=== PATIENT | male | born 1935 | race Caucasian/White ===

== ENCOUNTER 2017-07-19 05:27 | Inpatient (IN) | payer OTHER ==
[~2017-07-19] VITALS: Ht 170.2 cm; Wt 70.8 kg
[~2017-07-19 05:27] MED LIST: ASPIR-LOW81 MG PO; Aspirin E.C. PO; LIPITOR40 MG PO; LISINOPRIL20 MG PO; LISINOPRIL40 MG PO; LOPRESSOR25 MG PO; LOPRESSOR50 MG PO; NORVASC2.5 MG PO; PHENOBARBITAL PO; PHENOBARBITAL15 MG PO; PHENOBARBITAL30 MG PO; TAMSULOSIN HCL0.4 MG PO; TYLENOL EXTRA500 MG PO
[2017-07-19 07:30] LABS: HEMATOCRIT 33.7 % (38.0-50.0); HEMOGLOBIN 10.9 G/DL (12.5-16.6); MCH 30.7 PG (29.0-34.0); MCHC 32.3 G/DL (30.0-36.0); MCV 94.9 FL (86-99); PLATELET COUNT 172 K/uL (156-360); RBC DIS.WIDTH-CV 13.5 % (11.8-14.6); RBC DIS.WIDTH-SD 47.5 % (39-53); RED BLOOD COUNT 3.55 M/uL (4.00-5.50)
[2017-07-19 07:49] LABS: ALBUMIN 3.9 G/DL (3.2-4.8); CHLORIDE 109 MEQ/L (99-109); SODIUM 140 MEQ/L (136-147); TOTAL BILIRUBIN 0.5 MG/DL (0.0-1.0)
[2017-07-19 07:55] LABS: ALKALINE PHOSPHATASE 126 IU/L (3-129); ALT (GPT) 11 IU/L (3-49); AST (GOT) 13 IU/L (2-34); CREATININE 1.1 MG/DL (0.6-1.3); GFR ESTIMATE (CALCULATED) > 59 mL/min/ (58.99-99999); GLUCOSE 109 mg/dL (70-99); TOTAL PROTEIN 6.8 G/DL (6.4-8.3); UREA NITROGEN (BUN) 45 mg/dL (9-23)
[2017-07-19 07:59] LABS: TROP-I INTERPRETATION NEGATIVE; TROPONIN-I < 0.01 ng/mL (0.0-0.30)
[2017-07-19 08:53] LABS: APPEARANCE CLEAR ((CLEAR)); BILIRUBIN NEGATIVE; BLOOD NEGATIVE; COLOR STRAW ((YELLOW)); GLUCOSE (STRIP) NEGATIVE; KETONES NEGATIVE; LEUKOCYTES NEGATIVE; NITRITE NEGATIVE; PROTEIN (STRIP) NEGATIVE; UROBILINOGEN 0.2 MG/DL (0.2-1.0)
[2017-07-19 17:40] VITALS: BP 183/76
[2017-07-19 19:15] VITALS: BP 145/73
[2017-07-19 23:39] VITALS: BP 150/68
[2017-07-20 02:53] VITALS: BP 100/57
[2017-07-20 08:11] VITALS: BP 100/73
[2017-07-20 10:03] VITALS: BP 113/58
[2017-07-20 11:15] VITALS: BP 122/55
[2017-07-20 19:20] VITALS: BP 141/77
[2017-07-21 03:26] VITALS: BP 144/64
[2017-07-21 07:44] VITALS: BP 160/70
[2017-07-21 11:14] VITALS: BP 148/66
[2017-07-21 11:39] LABS: HEMATOCRIT 32.3 % (38.0-50.0); HEMOGLOBIN 10.6 G/DL (12.5-16.6); MCH 30.8 PG (29.0-34.0); MCHC 32.8 G/DL (30.0-36.0); MCV 93.9 FL (86-99); PLATELET COUNT 188 K/uL (156-360); RBC DIS.WIDTH-CV 13.4 % (11.8-14.6); RBC DIS.WIDTH-SD 46.2 % (39-53); RED BLOOD COUNT 3.44 M/uL (4.00-5.50); WHITE BLOOD COUNT 10.9 K/uL (4.1-10.2)
[2017-07-21 12:01] LABS: CHLORIDE 106 MEQ/L (99-109); GFR ESTIMATE (CALCULATED) > 59 mL/min/ (58.99-99999); GLUCOSE 105 mg/dL (70-99); POTASSIUM 4.5 MEQ/L (3.7-5.4); SODIUM 140 MEQ/L (136-147); UREA NITROGEN (BUN) 27 mg/dL (9-23)
[2017-07-21 16:08] VITALS: BP 175/75
[2017-07-21 19:30] LABS: Folate, RBC 31.7 % (())
[2017-07-21 19:34] VITALS: BP 110/57
[2017-07-22] VITALS (8 sets, daily range): BP systolic 76–147; BP diastolic 45–78
[2017-07-22 04:17] LABS: APPEARANCE CLEAR ((CLEAR)); BILIRUBIN NEGATIVE; BLOOD MODERATE; COLOR YELLOW ((YELLOW)); GLUCOSE (STRIP) NEGATIVE; KETONES NEGATIVE; LEUKOCYTES NEGATIVE; NITRITE NEGATIVE; PROTEIN (STRIP) 100; UROBILINOGEN 0.2 MG/DL (0.2-1.0)
[2017-07-22 04:35] LABS: BACTERIA RARE /HPF; EPITHELIAL CELLS NONE SEEN /HPF; MUCUS TRACE /LPF; RED BLOOD CELLS 0-5 /HPF (0-5); UCUL ADDED? NO; WHITE BLOOD CELLS 0-5 /HPF (0-5)
[2017-07-22 05:27] LABS: BASOPHIL (%) 0.5 % (0-1); EOSINOPHIL (%) 0.1 % (0-5); HEMATOCRIT 28.3 % (38.0-50.0); HEMOGLOBIN 9.5 G/DL (12.5-16.6); IMMATURE GRANULOCYTE (%) 1.3 % (0.0-0.7); LYMPHOCYTE (%) 3.5 % (15-42); LYMPHOCYTE COUNT 0.3 K/uL (1.0-2.8); MCH 31.1 PG (29.0-34.0); MCHC 33.6 G/DL (30.0-36.0); MCV 92.8 FL (86-99); MONOCYTE (%) 9.1 % (3-12); MONOCYTE COUNT 0.8 K/uL (0-0.8); NEUTROPHIL (%) 85.5 % (45-76); NEUTROPHIL COUNT 7.3 K/uL (1.8-6.4); NRBC (%) 0.2 /100 WBC (0-0); PLATELET COUNT 153 K/uL (156-360); RBC DIS.WIDTH-CV 13.6 % (11.8-14.6); RBC DIS.WIDTH-SD 46.6 % (39-53); RED BLOOD COUNT 3.05 M/uL (4.00-5.50); WHITE BLOOD COUNT 8.5 K/uL (4.1-10.2)
[2017-07-22 05:46] LABS: ALBUMIN 3.3 G/DL (3.2-4.8); ALKALINE PHOSPHATASE 104 IU/L (3-129); ALT (GPT) 13 IU/L (3-49); CHLORIDE 105 MEQ/L (99-109); CREATININE 0.9 MG/DL (0.6-1.3); GFR ESTIMATE (CALCULATED) > 59 mL/min/ (58.99-99999); GLUCOSE 142 mg/dL (70-99); POTASSIUM 3.9 MEQ/L (3.7-5.4); SODIUM 136 MEQ/L (136-147); UREA NITROGEN (BUN) 28 mg/dL (9-23)
[2017-07-22 05:47] LABS: AST (GOT) 39 IU/L (2-34); TOTAL BILIRUBIN 0.7 MG/DL (0.0-1.0); TOTAL PROTEIN 5.6 G/DL (6.4-8.3)
[2017-07-22 06:18] LABS: INTER. NORMALIZED RATIO 1.1
[2017-07-22 09:36] LABS: ERTH.SED.RATE 8 MM/HR (0-20)
[2017-07-23 03:45] VITALS: BP 98/52
[2017-07-23 05:49] VITALS: BP 102/58
[2017-07-23 08:58] VITALS: BP 143/83
[2017-07-23 11:48] VITALS: BP 154/79
[2017-07-23 19:40] VITALS: BP 137/64
[2017-07-24 04:46] VITALS: BP 141/66
[2017-07-24 09:30] VITALS: BP 162/71
[2017-07-24 11:45] VITALS: BP 111/58
[2017-07-24 15:57] VITALS: BP 172/75
[2017-07-24 20:46] VITALS: BP 112/65
[2017-07-24 23:03] VITALS: BP 123/69
[2017-07-25 04:25] VITALS: BP 162/83
[2017-07-25 08:12] VITALS: BP 137/95
[2017-07-25 11:59] VITALS: BP 171/77
[2017-07-25 16:03] VITALS: BP 154/72
[2017-07-25 19:00] VITALS: BP 148/66
[2017-07-25 23:28] VITALS: BP 158/70
[2017-07-26 08:15] VITALS: BP 162/72
[2017-07-26 10:21] LABS: HEMATOCRIT 26.9 % (38.0-50.0); HEMOGLOBIN 8.7 G/DL (12.5-16.6); MCH 30.4 PG (29.0-34.0); MCHC 32.3 G/DL (30.0-36.0); MCV 94.1 FL (86-99); PLATELET COUNT 166 K/uL (156-360); RBC DIS.WIDTH-CV 14.3 % (11.8-14.6); RBC DIS.WIDTH-SD 48.6 % (39-53); RED BLOOD COUNT 2.86 M/uL (4.00-5.50); WHITE BLOOD COUNT 6.3 K/uL (4.1-10.2)
[2017-07-26 10:37] LABS: CHLORIDE 106 MEQ/L (99-109); POTASSIUM 3.9 MEQ/L (3.7-5.4); SODIUM 139 MEQ/L (136-147)
[2017-07-26 10:44] LABS: CREATININE 0.8 MG/DL (0.6-1.3); GFR ESTIMATE (CALCULATED) > 59 mL/min/ (58.99-99999); GLUCOSE 149 mg/dL (70-99); UREA NITROGEN (BUN) 17 mg/dL (9-23)
[2017-07-26 10:57] VITALS: BP 138/65
[2017-07-26 15:16] VITALS: BP 153/67
[2017-07-26 19:39] VITALS: BP 160/70
[2017-07-27] VITALS (8 sets, daily range): BP systolic 110–179; BP diastolic 56–82
[2017-07-27 11:11] LABS: BASE EXCESS 4.2 mEq/L (-3 to +3); BICARBONATE 28.4 mEq/L (22-26); COMMENTS - BLOOD GASES A+C+; DEVICE NC; METHEMOGLOBIN 1.7 % (0-1.5); O2 FLOW 3 L/MIN; PCO2 40 mm Hg (35-45); PO2 70 mm Hg (80-100); SITE RR; TOTAL RESP RATE 21 resp/min; pH 7.46 (7.35-7.45)
[2017-07-28 03:44] VITALS: BP 187/77
[2017-07-28 03:56] VITALS: BP 152/72
[2017-07-28 10:27] VITALS: BP 134/60
[2017-07-28 11:50] VITALS: BP 128/60
[2017-07-28 15:54] VITALS: BP 148/66
[2017-07-29 00:41] VITALS: BP 131/94
[2017-07-29 04:49] VITALS: BP 121/84
[2017-07-29 05:29] LABS: HEMATOCRIT 26.6 % (38.0-50.0); HEMOGLOBIN 8.8 G/DL (12.5-16.6); MCHC 33.1 G/DL (30.0-36.0); MCV 93.7 FL (86-99); RBC DIS.WIDTH-CV 14.1 % (11.8-14.6); RBC DIS.WIDTH-SD 48.8 % (39-53); RED BLOOD COUNT 2.84 M/uL (4.00-5.50); WHITE BLOOD COUNT 15.2 K/uL (4.1-10.2)
[2017-07-29 05:40] LABS: PLATELET COUNT 261 K/uL (156-360)
[2017-07-29 06:00] LABS: CHLORIDE 100 MEQ/L (99-109); CREATININE 0.9 MG/DL (0.6-1.3); GFR ESTIMATE (CALCULATED) > 59 mL/min/ (58.99-99999); GLUCOSE 163 mg/dL (70-99); POTASSIUM 4.1 MEQ/L (3.7-5.4); SODIUM 139 MEQ/L (136-147)
[2017-07-29 06:01] LABS: UREA NITROGEN (BUN) 26 mg/dL (9-23)
[2017-07-29 07:28] VITALS: BP 190/88
[2017-07-29] MEDS ORDERED: MUCINEX600 MG PO (12:03)
[2017-07-29] MEDS ORDERED: PREDNISONE10 MG PO (12:05)
[2017-07-29] MEDS ORDERED: AUGMENTIN875 MG PO (12:06)
[2017-07-29 14:43] VITALS: BP 145/72
[2017-07-29 15:56] VITALS: BP 151/78
== END 2017-07-29 16:24 | DRG 871 ==
LOC: EME → EDBD 05:27 → 5WEST 12:14 → EDOF 12:14 → ENRESERV 12:32 → EDOF 12:42 → ENRESERV 15:37 → 5WEST 17:32 → CANRESERV 07-22 05:05 → ENRESERV 07-22 05:05 → CANRESERV 07-23 09:46 → 5WEST 07-29 16:24
PROVIDERS: Hospitalist; Internal Medicine; Nurse Practitioner Adult Health; Nurse Practitioner Family; Physician Assistant Medical
DX: A41.9 Sepsis, unspecified organism (principal); J10.01 Influenza due to other identified influenza virus with the same other identified influenza virus pneumonia; J10.08 Influenza due to other identified influenza virus with other specified pneumonia; J15.9 Unspecified bacterial pneumonia; J96.01 Acute respiratory failure with hypoxia; R65.20 Severe sepsis without septic shock; E86.0 Dehydration; J98.01 Acute bronchospasm; I10 Essential (primary) hypertension; E78.5 Hyperlipidemia, unspecified; F03.90 Unspecified dementia, unspecified severity, without behavioral disturbance, psychotic disturbance, mood disturbance, and anxiety; N40.1 Benign prostatic hyperplasia with lower urinary tract symptoms; K59.00 Constipation, unspecified; R29.6 Repeated falls; Y95 Nosocomial condition; Z66 Do not resuscitate; I69.354 Hemiplegia and hemiparesis following cerebral infarction affecting left non-dominant side; I69.393 Ataxia following cerebral infarction; I69.320 Aphasia following cerebral infarction; Z87.891 Personal history of nicotine dependence; Z23 Encounter for immunization
CPT/HCPCS: 36600; 70450; 71045; 71046; 71275; 73522; 74018; 74176; 74177; 80048; 80053; 81003; 82607; 82728; 82747 90; 82803; 83605; 83880; 84484; 85025; 85027; 85379; 85610; 85651; 87040; 87493; 87502; 90686; 92526 GN; 92610 GN; 93005; 93306; 94640; 94640 76; 94667; 94668; 94760; 94799; 97530 GO; 99202; 99281; 99285; G0378; J0456; J0692; J1650; J1940; J2405; J2543; J2930; J7030; J7050; J7120